=== PATIENT | male | born 2000 | race Caucasian/White ===

== ENCOUNTER 2025-01-07 09:27 | Emergency (ER) | payer OTHER ==
[2025-01-07 10:17] LABS: #Basophils 0.04 10x3/uL (0.0-0.2); #Monocytes 0.52 10x3/uL (0.0-1.1); #Neutrophils 4.56 10x3/uL (1.5-8.4); %Basophils 0.6 % (0.0-2.0); %Eosinophils 3.1 % (0.0-6.0); %Lymphocytes 17.5 % (18.0-47.0); %Neutrophils 70.5 % (40.0-75.0); Hematocrit 42.3 % (38.8-50.0); Hemoglobin 14.8 g/dL (13.5-17.5); Mean Corpuscular Hemoglobin 32.2 pg (27.0-33.0); Mean Corpuscular Volume 92.2 fL (81.2-95.1); Platelet Count 205 10x3/uL (150-450); RBC Distribution Width 11.9 % (11.5-14.5); Red Blood Cell (RBC) Count 4.59 10x6/uL (4.32-5.72); White Blood Cell (WBC) Count 6.47 10x3/uL (3.5-10.5)
[2025-01-07 10:34] LABS: ALT (SGPT) 27 U/L (Less than 45); AST (SGOT) 24 U/L (11-34); Albumin 4.8 g/dL (3.1-4.5); Alkaline Phosphatase 92 U/L (40-110); Anion Gap 12 mmol/L (10-20); BUN (Urea Nitrogen) 18 mg/dL (8.9-20.6); Bilirubin, Total 0.7 mg/dL (0.3-1.2); Calc. Creatinine Clearance 0 mL/min (70-130); Calcium 10.1 mg/dL (7.8-10.44); Carbon Dioxide 22 mmol/L (22-29); Chloride 109 mmol/L (98-107); Estimated GFR 98; Globulin 2.5 g/dL (2.4-3.5); Glucose 101 mg/dL (70-105); Potassium 4.1 mmol/L (3.5-5.1); Protein, Total 7.3 g/dL (6.0-8.3); Sodium 139 mmol/L (136-145)
[2025-01-07] MEDS ORDERED: Ketorolac Tromethamine 30 MG (1 mL) VIAL ONE (10:35)
[2025-01-07 10:39] LABS: Troponin I 0.015 ng/mL (< 0.028)
== END 2025-01-07 11:53 | disposition home or self-care (01) ==
LOC: CSHERS 09:27
DX: R07.89 Other chest pain (principal); F17.290 Nicotine dependence, other tobacco product, uncomplicated
CPT/HCPCS: 71045; 80053; 83880; 84484; 85025; 85379; 93005; 96374; J1885

== ENCOUNTER 2025-01-10 19:11 | Emergency (ER) | payer OTHER ==
[2025-01-10 19:56] LABS: #Basophils 0.08 10x3/uL (0.0-0.2); #Eosinophils 0.08 10x3/uL (0.0-0.5); #Monocytes 0.55 10x3/uL (0.0-1.1); #Neutrophils 7.66 10x3/uL (1.5-8.4); %Basophils 0.8 % (0.0-2.0); %Eosinophils 0.8 % (0.0-6.0); %Lymphocytes 15.6 % (18.0-47.0); %Monocytes 5.5 % (0.0-10.0); %Neutrophils 77.1 % (40.0-75.0); Hematocrit 44.6 % (38.8-50.0); Hemoglobin 15.7 g/dL (13.5-17.5); Mean Corpuscular HGB CONC 35.2 g/dL (32.0-36.0); Mean Corpuscular Hemoglobin 32.8 pg (27.0-33.0); Mean Corpuscular Volume 93.1 fL (81.2-95.1); Mean Platelet Volume 9.6 fL (7.4-10.4); Platelet Count 211 10x3/uL (150-450); RBC Distribution Width 11.6 % (11.5-14.5); Red Blood Cell (RBC) Count 4.79 10x6/uL (4.32-5.72); White Blood Cell (WBC) Count 9.94 10x3/uL (3.5-10.5)
[2025-01-10 20:22] LABS: ALT (SGPT) 25 U/L (Less than 45); AST (SGOT) 22 U/L (11-34); Albumin 5.1 g/dL (3.1-4.5); Alkaline Phosphatase 90 U/L (40-110); Anion Gap 13 mmol/L (10-20); BUN (Urea Nitrogen) 16 mg/dL (8.9-20.6); Bilirubin, Total 0.7 mg/dL (0.3-1.2); CK (CPK) 105 U/L (30-200); Calc. Creatinine Clearance 0 mL/min (70-130); Calcium 9.7 mg/dL (7.8-10.44); Carbon Dioxide 24 mmol/L (22-29); Chloride 106 mmol/L (98-107); Estimated GFR 96; Globulin 2.7 g/dL (2.4-3.5); Glucose 102 mg/dL (70-105); Lipase 10 U/L (8-78); Potassium 4.1 mmol/L (3.5-5.1); Protein, Total 7.8 g/dL (6.0-8.3); Sodium 139 mmol/L (136-145)
[2025-01-10 20:28] LABS: Troponin I Less than 0.010 ng/mL (< 0.028)
== END 2025-01-10 20:59 | disposition home or self-care (01) ==
LOC: CSHERS 19:11
DX: R07.89 Other chest pain (principal); F17.290 Nicotine dependence, other tobacco product, uncomplicated
CPT/HCPCS: 71275; 80053; 82550; 83690; 83735; 84145; 84443; 84484; 85025; 85379; 86140; 93005